=== PATIENT | male | born 1990 | race Caucasian/White ===

== ENCOUNTER 2016-10-15 16:00 | Inpatient (IN) | payer SELFPAY ==
[~2016-10-15] VITALS: Ht 167.6 cm; Wt 69.4 kg
--- NOTE | ~2016-10-15 | PN ---
Unit #: [id number] #: [id number] Patient: MARGARET DUPONT [id number] [facility] [address] [place] [address] [id number] MR#: [id number] NAME: MARGARET DUPONT ROOM: [facility] Age: 26 Sex: M Admission Date: 10/16/2016 : 1990 Attending Physician: Sly Olea M.D. Admitting Physician: Sly Olea M.D. Primary Care Physician: Lluvia Doctor Not In System [facility] PROGRESS NOTES DATE OF SERVICE: 10/17/2016 SUBJECTIVE Mr. Dupont is a 24-year-old white male, who was seen today and chart was reviewed and case was discussed with the staff. He has been anxious, withdrawn, and rather seclusive to himself, though he has been calm and cooperative with treatment recommendation and has been taking medications and tolerating them fairly well with no reported side effects. MENTAL STATUS EXAMINATION Young white male who was casually dressed with fair personal hygiene, appears to be in slight distress and discomfort. He was awake and alert on interaction with intact orientation. His mood was anxious with a congruent affect. His speech was slow and goal directed. He denies any suicidal or homicidal ideations and also denies any auditory or visual hallucinations. His insight and judgment remain slightly impaired. TREATMENT PLAN 1. We will continue on current medications and treatment protocol. We will monitor his response to medications and make further adjustments as needed. 2. We will continue to follow up. Dictated by... Trey Talbot/kimani TD: 10/18/2016 01:43 JOB #: [id number] [facility] PROGRESS NOTES Page 1 of 1 X Sly Olea MD PROGRESS NOTE
--- NOTE | ~2016-10-15 | PN ---
Unit #: [id number] #: [id number] Patient: MARGARET DUPONT [id number] [facility] [address] [place] [address] [id number] MR#: [id number] NAME: MARGARET DUPONT ROOM: [facility] Age: 26 Sex: M Admission Date: 10/16/2016 : 1990 Attending Physician: Sly Olea M.D. Admitting Physician: Sly Olea M.D. Primary Care Physician: Lluvia Doctor Not In System [facility] PROGRESS NOTES DATE OF SERVICE 10/19/2016 DISCUSSION Mr. Dupont is a 26-year-old white male who was seen today. Chart was reviewed and case was discussed with the staff. He has been doing somewhat better as he refused taking the medications and was maintaining persistent paranoia and psychosis. However, as of today, he states that he is going to take his medication though still has been exhibiting bizarre behavior and has not been eating with peers in the day room and bringing his food tray in his room and eating on his bed alone. MENTAL STATUS EXAMINATION Young white male who is casually dressed with fair personal hygiene, appears to be in no acute distress or discomfort. The patient was awake and alert with impaired attention and concentration. His mood is anxious with congruent affect. His speech is slow and restricted in content. His thought process were disorganized with some looseness of associations. His insight and judgment remain significantly impaired. TREATMENT PLAN 1. We will continue him on his current medications and treatment protocol. We will monitor his response to the medications and make further adjustments as needed. 2. We will continue to follow up. Dictated by... Trey Talbot/nikolai TD: 10/19/2016 11:20 JOB #: [id number] Unit #: [id number] #: [id number] Patient: MARGARET DUPONT [facility] PROGRESS NOTES Page 1 of 1 X Sly Olea MD PROGRESS NOTE
--- NOTE | ~2016-10-15 | HP ---
Unit #: [id number] #: [id number] Patient: MARGARET LESTER [id number] [facility] [address] [place] [address] [id number] MR#: [id number] NAME: MARGARET LESTER ROOM: [facility] Age: 26 Sex: M Admission Date: 10/16/2016 : 1990 Attending Physician: Sly Olea M.D. Admitting Physician: Sly Olea M.D. Primary Care Physician: Generic Doctor Not In System HISTORY AND PHYSICAL HISTORY OF PRESENT ILLNESS The patient is a 26-year-old male, [facility] for psychosis, although awake the patient did not answer any of my questions and remained silent during the exam. PAST MEDICAL HISTORY Unknown. PAST SURGICAL HISTORY Unknown. SOCIAL HISTORY Per the chart, he is unemployed and homeless, smokes one pack of cigarettes daily, uses yazi-ed-yxmp joints of marijuana per day and methamphetamines daily. FAMILY MEDICAL HISTORY Noncontributory. ALLERGIES Bactrim. CURRENT MEDICATIONS The patient is not on any home medications. REVIEW OF SYSTEMS The patient refused to answer. PHYSICAL EXAMINATION GENERAL: Awake and alert, in no acute distress. VITAL SIGNS: Temperature 98.6, heart rate 99, respirations 16, blood pressure 103/65. HEIGHT: 5 feet 6 inches. WEIGHT: 153 pounds. LUNGS: Clear to auscultation bilaterally. HEART: Regular rate and rhythm. The patient refused rest of the examination. IMPRESSION Psychiatric admission. RECOMMENDATIONS Psychiatric, per psychiatrist. Unit #: [id number] #: [id number] Patient: MARGARET LESTER No contraindications to participating in facility's activities. MEDICAL PROGNOSIS Good. MEDICAL CONDITION Stable. Dictated by... Katiuska Sheikh/livia TD: 10/17/2016 06:53 JOB #: [id number] HISTORY AND PHYSICAL Page 1 of 1 X YURIY NEGRETE APRN HISTORY AND PHYSICAL
--- NOTE | ~2016-10-15 | PN ---
Unit #: [id number] #: [id number] Patient: MARGARET DUPONT [id number] [facility] [address] [place] [address] [id number] MR#: [id number] NAME: MARGARET DUPONT ROOM: [facility] Age: 26 Sex: M Admission Date: 10/16/2016 : 1990 Attending Physician: Sly Olea M.D. Admitting Physician: Sly Olea M.D. Primary Care Physician: Lluvia Doctor Not In System [facility] PROGRESS NOTES DATE OF SERVICE 10/18/2016 DISCUSSION Mr. Dupont is a 26-year-old white male with methamphetamine dependence and mood disorder and psychosis who was seen today. Chart was reviewed and case was discussed with the staff. He remains anxious, withdrawn, disorganized, unkempt, disheveled, and unable to carry on meaningful conversation and appears to be somewhat out of touch with reality and poorly focused and motivated towards treatment. He does not have (1) __ intact mental functioning at this time to be able to make good treatment decisions and has been needing redirection and constant and positive enforcement. MENTAL STATUS EXAMINATION Young white female who is casually dressed with fair personal hygiene, appears to be in no acute distress or discomfort. The patient was awake and alert with impaired attention and concentration. His mood is anxious with congruent affect. Speech is slow and restricted in content. His thought processes were disorganized with some looseness of associations. His insight and judgment remain significantly impaired. TREATMENT PLAN 1. We will continue him on his current medications and treatment protocol. We will monitor his response to the medications and make further adjustments as needed. 2. We will continue to encourage him to show good participation in treatment-related activities. 3. We will continue to follow up. Dictated by... Trey Talbot/nikolai TD: 10/18/2016 15:02 JOB #: [id number] Unit #: [id number] #: [id number] Patient: MARGARET DUPONT [facility] PROGRESS NOTES Page 1 of 1 X Sly Olea MD X PROGRESS NOTE
--- NOTE | ~2016-10-15 | PA ---
Unit #: [id number] #: [id number] Patient: MARGARET LESTER [id number] [facility] [address] [place] [address] [id number] I MR#: [id number] NAME: MARGARET LESTER ROOM: [facility] Age: 26 Sex: M Admission Date: 10/16/2016 : 1990 Date of Assessment: Attending Physician: Sly Olea M.D. Admitting Physician: Sly Olea M.D. Primary Care Physician: Generic Doctor Not In System PSYCHIATRIC ASSESSMENT DATE OF SERVICE 10/16/2016. IDENTIFYING DATA Mr. Toney is a 26-year-old single, white male who is a resident of [place], [place] and was self-referred to the hospital on a voluntary basis. CHIEF COMPLAINT "People are following me and trying to kill me." HISTORY OF PRESENT ILLNESS Mr. Toney is a 26-year-old white male who came to the ER at [facility] because he was apparently talking to himself and was acting bizarre at a local hotel and was referred by [place] through Police Department and was uncooperative. He reported to the police that there were people following him and trying to kill him and accused police of being in cahoots with people trying to kill him and police dispatched EMS to take him to the ER. EMS reports that the patient was on methamphetamines and police believed that he was having an acute psychotic break. In the ER, the patient was seen to be very uncooperative, acutely psychotic with bizarre behavior and 72-hours hold was initiated and the patient was transferred to us. SUBSTANCE ABUSE HISTORY The patient reports history of opioids and amphetamines, and cannabis abuse, and currently, opioids and methamphetamine has been his drug of choice and has been using methamphetamine intravenously. PAST PSYCHIATRIC HISTORY The patient has not had any prior inpatient or outpatient psychiatric treatment. Review of the medical records indicate that currently he is not active in any treatment program, is not seeing a psychiatrist, and not taking any psychotropic medications. PAST MEDICAL HISTORY No acute or chronic medical illness. ALLERGIES Septra. CURRENT MEDICATIONS None. Unit #: [id number] #: [id number] Patient: MARGARET LESTER PERSONAL AND SOCIAL HISTORY A 26-year-old white male who reports that he is single, unemployed, and lives alone and has poor social support system. MENTAL STATUS EXAMINATION Young white male who was casually dressed with fair personal hygiene, appears to be in no acute distress or discomfort. He was awake and alert on interaction with intact orientation to time, place, and person. His mood was anxious and depressed with a congruent affect. His speech was slow and restricted in content. His thought processes were disorganized with some looseness of associations and paranoid ideations, and auditory and visual hallucinations and delusional behavior. His insight and judgment remain significantly impaired. DIAGNOSTIC IMPRESSION Psychiatric: Schizoaffective disorder, bipolar type, most recent episode depressed, recurrent, moderate, with psychosis; methamphetamine dependence, moderate. Medical: None. Stressors: Moderate psychosocial stressors. TREATMENT PLAN 1. The patient has presented with history of mood disorder and psychosis and substance abuse, and has been decompensating and will need inpatient hospitalization for safety and stabilization. We will start him back on his home medications. We will adjust the medications and monitor response. 2. Supportive therapy was provided to the patient. 3. Safe, structured, and nourishing environment will be provided. ESTIMATED LENGTH OF STAY 5 to 7 days. ABILITY TO HELP SELF Limited. WILLINGNESS TO HELP SELF The patient appears to be willing to help self. STRENGTHS 1. Communicative. 2. Cooperative. PROBLEMS 1. Chronic dysphoric symptoms. 2. Poor social support system. DISCHARGE CRITERIA This will be contingent upon the patient's ability to show resolution of his depression and psychosis as well as his ability to stay safe to himself, particularly after discharge from the hospital. Dictated by... Trey Talbot/kimani TD: 10/16/2016 14:28 Unit #: [id number] #: [id number] Patient: MARGARET LESTER JOB #: [id number] PSYCHIATRIC ASSESSMENT Page 1 of 1 X Sly Olea MD PSYCHIATRIC ASSESSMENT
--- NOTE | ~2016-10-15 | PN ---
Unit #: [id number] #: [id number] Patient: MARGARET DUPONT [id number] [facility] [address] [place] [address] [id number] I MR#: [id number] NAME: MARGARET DUPONT ROOM: [facility] Age: 26 Sex: M Admission Date: 10/16/2016 : 1990 Attending Physician: Sly Olea M.D. Admitting Physician: Sly Olea M.D. Primary Care Physician: Generic Doctor Not In System [facility] PROGRESS NOTES DATE 10/20/2016 DISCUSSION Mr. Dupont is a 26-year-old white male who was seen today and chart was reviewed and case was discussed with the staff. He appears to be doing better and has been showing some ____ of his psychosis. Meanwhile, he has been calm and cooperative. No agitation or aggression has been noted. MENTAL STATUS EXAMINATION Young white male who was casually dressed with fair personal hygiene and appears to be in no acute distress or discomfort. He was awake and alert with impaired attention and concentration. His mood was anxious with congruent affect. His speech is slow and restricted in content. He denies any suicidal or homicidal ideation. His insight and judgement remains slightly impaired. TREATMENT PLAN 1. Will continue on his current medications and treatment protocol. Will monitor his response to medications and make further adjustments as needed. 2. Will continue to follow up. Dictated by... Trey Talbot/ari TD: 10/20/2016 19:34 JOB #: [id number] Unit #: [id number] #: [id number] Patient: MARGARET DUPONT [facility] PROGRESS NOTES Page 1 of 1 X Sly Olea MD PROGRESS NOTE
== END 2016-10-20 16:25 | disposition home or self-care (01) | DRG 885 ==
LOC: P1E 10-16 01:05
DX: F25.0 Schizoaffective disorder, bipolar type (principal); F15.20 Other stimulant dependence, uncomplicated; F31.32 Bipolar disorder, current episode depressed, moderate; F29 Unspecified psychosis not due to a substance or known physiological condition; Z56.0 Unemployment, unspecified; Z59.0 Homelessness